=== PATIENT | male | born 1930 | race Caucasian/White ===

== ENCOUNTER 2016-10-29 13:35 | Outpatient (CLI) | payer OTHER ==
--- NOTE | 2016-10-29 15:56 | DIAGNOSTIC IMAGING REPORT ---
PROCEDURE: CT ABDOMEN/PELVIS W/O CONTRAST INDICATION: RUQ ABD PAIN TECHNIQUE: Axial CT images were obtained through the abdomen and pelvis without IV contrast. Coronal and sagittal reformations were created. COMPARISON: 03/21/2009 and renal ultrasound 07/04/2015 and 05/01/2014 FINDINGS: Mild to moderate cardiomegaly. Very small hiatal hernia. Clear lung bases. Stable heterogeneous right adrenal mass measuring about 2.5 cm. Single dependent 5 mm gallstone in the neck of the gallbladder. Atrophic renal parenchyma bilaterally. Multiple cysts bilaterally. Interval enlargement of right lower pole solid renal mass which now measures 6.6 x 5.8 x 7.0 cm, previously measuring 4 cm in greatest diameter. Prominent collateral vessels in the inferior right perinephric space. Mild perinephric inflammation. Chronically prominent right distal ureter without calcification. No visible retroperitoneal adenopathy. 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 Tortuous but normal caliber aorta. Normal pancreas, spleen, stomach, upper bowel loops, and mesentery. Small fat containing right inguinal hernia, minimally increased in size compared to 2008. Spermatic cord lipoma/fat containing left inguinal hernia, unchanged in size. Mild bilateral inguinal adenopathy, left greater than right. No significant change compared to previous. Normal prostate gland, seminal vesicles, urinary bladder. Tortuous pelvic vessels. The appendix and distal bowel loops are normal. No free pelvic fluid. Ankylosis of L1-L3 vertebral bodies and large bridging osteophytes throughout the visible thoracolumbar spine. Severe disc height loss in the lower lumbar spine. Diffuse demineralization. IMPRESSION: 1. Fat containing right inguinal hernia is slightly larger compared to the prior study. It does not significantly increase in size with Valsalva maneuver. Adjacent tissue within the hernia sac was present previously. 2. Small fat containing left inguinal hernia is unchanged. 3. Bilateral inguinal adenopathy is stable. 4. Interval increase in size of solid right renal mass, now measuring 7 cm, previously measuring 4.9 cm. Associated mild perinephric inflammation in the right retroperitoneum. 5. Calcified 5 mm gallstone in the gallbladder neck. 6. Discussed with Marcie Anderson in the Urgent Care clinic. All CT scans at this facility use dose modulation, iterative reconstruction, and/or weight-based dosing when appropriate to reduce radiation dose to as low as reasonably achievable.
[2016-11-24] MEDS ORDERED: FELODIPINE ER5 MG PO (13:51)
[2016-11-24] MEDS ORDERED: CARDURA8 MG PO (13:51)
[2016-11-24] MEDS ORDERED: INDAPAMIDE1.25 MG PO (13:52)
[2016-11-24] MEDS ORDERED: METOPROLOL TAR100 MG PO (13:53)
[2016-11-24] MEDS ORDERED: POTASSIUM CHLO10 ME2 PO (13:54)
[2016-11-24] MEDS ORDERED: COUMADIN7.5 MG PO (13:56)
== END 2016-10-29 23:00 ==
LOC: CT SRH 13:35
DX: K40.20 Bilateral inguinal hernia, without obstruction or gangrene, not specified as recurrent (principal); N28.89 Other specified disorders of kidney and ureter; R59.0 Localized enlarged lymph nodes; K80.80 Other cholelithiasis without obstruction
CPT/HCPCS: 90074; 90100; 95059

== ENCOUNTER 2016-11-27 07:43 | Day surgery (SDC) | payer OTHER ==
[~2016-11-27] VITALS: Ht 167.6 cm; Wt 81.0 kg
[~2016-11-27 07:43] MED LIST: CARDURA8 MG PO; COUMADIN7.5 MG PO; FELODIPINE ER5 MG PO; INDAPAMIDE1.25 MG PO; METOPROLOL TAR100 MG PO; POTASSIUM CHLO10 ME2 PO
[2016-11-27] MEDS ORDERED: NORCO1 TA1 PO (11:05)
--- NOTE | 2016-11-27 11:05 | Provider's Discharge Care Plan ---
Problem, Goal, Plan Problem List 1. S/P herniorrhaphy
--- NOTE | 2016-11-27 11:05 | Provider's Discharge Care Plan ---
Problem, Goal, Plan Problem List 1. S/P herniorrhaphy
--- NOTE | 2016-11-27 12:48 | OPERATIVE REPORT ---
DATE OF SURGERY: 11/27/2016 SURGEON: Bob Kaye MD PREOPERATIVE DIAGNOSIS: 1. Recurrent right inguinal hernia POSTOPERATIVE DIAGNOSIS: 1. Recurrent right inguinal hernia PROCEDURE PERFORMED: 1. Right inguinal herniorrhaphy. ANESTHESIA: Total IV general and local. INDICATIONS: The patient is an 85-year-old man with a history of right groin bulge and pain. CT confirmed a hernia and the patient had undergone a previous herniorrhaphy in the distant past. He has had multiple repairs on both sides. SURGICAL TECHNIQUE: The patient was taken to the operating room and given IV sedation. A local anesthetic block of 0.5% Marcaine with epinephrine was infiltrated. An incision was made over the right groin and carried down to skin and subcutaneous tissue with sharp and electrocautery dissection. There was quite a bit of scar tissue. The external oblique fibers were indistinct from the underlying tissues. They were opened up and dissection carried down to where there was an opening in what appeared to be the transversalis fascia down near the symphysis pubis. There was bulging preperitoneal fat coming through this defect which is about fingertip in size. The preperitoneal fat was reduced and the edges of the transversalis fascia delineated. The transversalis fascia was opened laterally part way up to the groin in order to allow an overlapping repair. A circular disk of woven polypropylene mesh was placed under the fascia near the symphysis and extending out to the epigastric vessels, which were visible at this point. A Shouldice like repair was done with 2 layers of running 2-0 polypropylene overlapping the transversalis and pulling it down to solid tissue at the lower edge which was mostly old scar from an old repair. This then incorporated the patch of polypropylene in the preperitoneal space. Following this closure, the area seemed to be pretty solid. The remaining scar tissue which was mostly the external oblique fascia and indurated post-surgical scar was reapproximated with 2 layers of running 3-0 polypropylene suture. At the conclusion, the wound was hemostatic. I did not see any good way to get an onlay patch in this area without tearing down a lot of other scarred and distorted tissue. After irrigating the subcutaneous tissue, the skin was closed with running subcuticular 4-0 Vicryl suture and Steri-Strips. In summary, this patient had a multi-recurrent hernia that was repaired with a small fingertip defect. In the event that this patient should develop a new recurrence in the future, then clearly anterior approaches are difficult and a retroperitoneal laparoscopic approach is advised despite the patient's age and desire for local anesthetic.
[2016-11-27 12:53] VITALS: BP 144/78
== END 2016-11-27 13:02 | disposition home or self-care (01) ==
LOC: SDC SRH 07:43 → SCU SRH 07:44 → OR SRH 09:45 → SDC SRH 09:45
PROVIDERS: Surgery
PROC: 0YU50JZ Supplement Right Inguinal Region with Synthetic Substitute, Open Approach (ICD-10-PCS; principal; 2016-11-27 09:45)
DX: K40.91 Unilateral inguinal hernia, without obstruction or gangrene, recurrent (principal); Z79.01 Long term (current) use of anticoagulants; I48.91 Unspecified atrial fibrillation; I10 Essential (primary) hypertension
CPT/HCPCS: 29229; 29240; 50004; 60001; 80212; 80866; 82572; 84038; 84519; 87058; 90047; 90074; 94060

== ENCOUNTER 2017-01-20 17:49 | Inpatient (IN) | payer OTHER ==
[~2017-01-20] VITALS: Ht 167.6 cm; Wt 74.8 kg
[~2017-01-20 17:49] MED LIST changes: +NORCO1 TA1 PO
--- NOTE | 2017-01-20 19:17 | DIAGNOSTIC IMAGING REPORT ---
PROCEDURE: CT SOFT TISSUE NECK W/O CONT INDICATION: Dysphagia. TECHNIQUE: Noncontrast axial images were obtained from the skull base through the upper mediastinum with sagittal and coronal reformations. In addition, angled axial oblique images were obtained (avoiding dental hardware). Intravenous contrast was not utilized (possible allergy). COMPARISON: None. FINDINGS: Soft tissues of the neck are within normal limits. There is nodes of mass or adenopathy. Airway appears normal. Parotid glands, submandibular glands, and thyroid gland are within normal limits. There are bilateral retention cyst in the maxillary sinuses There are marked degenerative changes of the cervical spine. There is moderate fluid distention of the thoracic esophagus with fluid level (partially visualized) IMPRESSION: 1. Normal soft tissues of the neck. 2. Marked degenerative change of the cervical spine. 3. Moderate fluid distention of the thoracic esophagus (partially visualized). Consider achalasia or esophageal stricture. 4. Findings discussed with Dr. Harlan Grove. All CT scans at this facility use dose modulation, iterative reconstruction, and/or weight-based dosing when appropriate to reduce radiation dose to as low as reasonably achievable.
--- NOTE | 2017-01-20 21:34 | ED NURSING NOTES ---
Clinical Report - Nurses [facility] [address] [place] [address] 01/20/2017 17:50 Patient: GAY FLORES [facility] [id number] TRIAGE Triage time 18:Jan 20 2017. Acuity: LEVEL 2. Chief Complaint: (Unable to swallow). ERIC COMA SCORE: [place] Coma Scale: 15- eyes open spontaneously (4); best verbal response- oriented x 4 (5); best motor response- obeys commands (6). --18:28 Parvin Mendoza R.N. 18:01 01/20/17. BP: 162/88. HR: 88. RR: 18. O2 saturation: 100%. Temp: 98.1 F. Pain level now 5/10. --18:28 Parvin Mendoza R.N. Weight: 75.7 kg stated. Height/Length: 66 inches Per Patient. BMI: 26.9. --18:08 Parvin Mendoza R.N. Medications Coumadin Oral 5 mg (1 1/2 tab). Doxazosin Mesylate Oral (Tablet 8 mg) 1 tablet. Felodipine Oral 5 mg, daily. Indapamide Oral (Tablet 1.25 mg) 1 tablet. Metoprolol Tartrate Oral 100 mg (2 tablets). Potassimin Oral 10mg. --18:06 Parvin Mendoza R.N. Allergies Tetanus Immune Globulin. Tetanus Toxoids. --18:06 Parvin Mendoza R.N. IV Contrast. --19:[address] History Arrived by private vehicle. Historian: patient. Accompanied by family. This started today. ( States yesterday his left jaw was hurting radiating down to his neck and his tooth was aching so he went to the dentist and the dentist found nothing wrong. The pain is gone today but now he can't swallow.). He has had a cough. No fever, weakness, difficulty breathing or skin rash. Denies muscle aches. PAST MEDICAL HX: Immunizations: up-to-date. SOCIAL HX: Former smoker, end date 1966. No alcohol use or drug use. SELF HARM ASSESSMENT: A self harm assessment was performed. The patient answered "no" to the question "Have you recently felt down, depressed, or hopeless?" and "Do you have thoughts of harming or killing yourself?". FALL RISK ASSESSMENT: Fall risk assessment completed. No fall risk identified. NUTRITIONAL RISK ASSESSMENT: The nutritional risk assessment revealed no deficiencies. FUNCTIONAL ASSESSMENT: Functional assessment: no impairments noted. LEARNING NEEDS ASSESSMENT: The learning needs assessment revealed no barriers. ABUSE ASSESSMENT: Abuse assessment: (yes) The patient was asked "Do you feel safe in your home?". SKIN INTEGRITY ASSESSMENT: Skin integrity risk assessment completed. No skin integrity risk identified. --18:28 Parvin Mendoza R.N. PROBLEMS: Hypertension. --18:06 Parvin Mendoza R.N. Kidney tumor. --19:10 Alden Johnson R.N. Atrial Fibrillation. --19:35 Alden Johnson R.N. ADDITIONAL SURGERIES: Hurnia . --18:06 Parvin Mendoza R.N. Interventions ID band on patient. --18:28 Parvin Mendoza R.N. PHYSICAL ASSESSMENT Ambulatory to room. ( Spitting unable to swallow secretions.). GENERAL / NEURO / PSYCH: Alert. Oriented X 4. Appears anxious. HEENT: Pupils equal, round and reactive to light. No facial asymmetry noted. Mucous membranes are pink. RESPIRATORY: Respirations not labored. Chest nontender. Breath sounds within normal limits. ( slight retractions states has a cough for past week.). CVS: Normal sinus rhythm noted. Capillary refill less than 2 seconds. Pulses within normal limits. GI / : ( Last BM this am and normal.). Abdomen soft and nontender. SKIN: Skin intact. Skin is warm and dry. Normal skin turgor. --18:29 Parvin Mendoza R.N. GENERAL / NEURO / PSYCH: Alert. Oriented X 4. Does not appear in pain or anxious. RESPIRATORY: Respirations not labored. The patient can speak in full sentences. CVS: Cardiac rhythm: atrial fibrillation. --21:08 Alden Johnson R.N. NURSING PROGRESS NOTES The initial plan of care for this patient includes an assessment with efforts to address patient positioning, appropriate ambient lighting and comfortable environmental temperature; impairment of the gastrointestinal system. quality assurance monitor body, pulse oximeter and NIBP monitor placed on patient. Patient gowned. Head of bed elevated 75 degrees. Reassurance given. Call light placed in reach. Side rails up x 1. Bed placed in lowest position. Brakes of bed on. --18:30 Parvin Mendoza R.N. 18:30 01/20/2017 Site #1 started via IV in the left forearm with an 18g angiocath, with aseptic technique and good blood return; one attempt. Blood drawn: rainbow set. Labeled in the presence of the patient and sent to the lab. Saline lock flushed with 10 mL saline. --18:30 Parvin Mendoza R.N. 18:31 01/20/2017 Started bag #1 1000 mL IV Fluids IV NS (Saline); at 1000 mL/hr over 1 hour(s) via site #1 via dial-a-flow. Allergies verified and confirmed 5 rights. IV patency established. IV site checked: no pain, redness, or swelling. IV flushed thoroughly pre- and post-medication administration. --18:31 Parvin Mendoza R.N. EKG time: (1817). EKG was ordered, performed by a tech and shown to the ED physician. --18:36 Claribel Lynch ER Tech1 19:15 01/20/17. BP: 169/84. HR: 109. RR: 17. O2 saturation: 97%. 18:45 01/20/17. BP: 148/80. HR: 101. RR: 19. O2 saturation: 100%. 18:30 01/20/17. BP: 155/88. HR: 100. RR: 18. O2 saturation: 99%. 18:15 01/20/17. BP: 161/84. HR: 101. RR: 16. O2 saturation: 99%. --19:23 Parvin Mendoza R.N. ( Report given to Moise VEGA). --19:23 Parvin Mendoza R.N. ( 1909: Report received from Parvin Roach RN). --19:24 Alden Johnson R.N. 19:10 01/20/17. BP: 154/88. HR: 96 (irregular). RR: 20 (regular and unlabored). O2 saturation: 100%. Pain level now: 0/10. Additional comments: AFIB on monitor. --19:25 Alden Johnson R.N. 19:31 01/20/2017 Glucagon IVP 1 mg given over 2 minute(s) via site #1. Allergies verified and confirmed 5 rights. IV patency established. IV site checked: no pain, redness, or swelling. IV flushed thoroughly pre- and post-medication administration. IVP given by RN. --19:35 Alden Johnson R.N. 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 --19:36 Alden Johnson R.N. 19:44 01/20/2017 Lopressor (Metoprolol Tartrate) IVP 5 mg given over 5 minute(s) via site #1. Allergies verified and confirmed 5 rights. IV patency established. IV site checked: no pain, redness, or swelling. IV flushed thoroughly pre- and post-medication administration. IVP given by RN. --19:45 Alden Johnson R.N. 19:53 01/20/2017 Started bag #1 1000 mL IV Fluids IV LACTATED RINGERS; at 150 mL/hr over 6.5 hour(s) via site #1 via IV pump. Allergies verified and confirmed 5 rights. IV patency established. IV site checked: no pain, redness, or swelling. IV flushed thoroughly pre- and post-medication administration. --19:53 Alden Johnson R.N. 22:06 01/20/17. BP: 126/79 taken while sitting. HR: 83 (irregular and normal rate). RR: 16 (regular and unlabored). O2 saturation: 96% on room air. Pain level now: 0/10. --22:07 Alden Johnson R.N. 19:32 01/20/2017 IV Fluids IV NS Discontinued: completed upon admission. Total amount infused: 1000 mL. IV patency established. IV site checked: no pain, redness, or swelling. IV flushed thoroughly. --22:46 Alden Johnson R.N. 22:44 01/20/2017 IV Fluids IV LACTATED RINGERS Continued: upon admission at the rate of 150 mL/hr. 600 mL remaining. IV patency established IV site checked: no pain, redness, or swelling IV flushed thoroughly. --22:46 Alden Johnson R.N. DISPOSITION / DISCHARGE Condition at departure: stable. Transported via by transport team with IV. Report was given to a nurse via a phone call. Report included patient's care, treatment, medications, reviewed medication reconcilliation, and condition (including any recent changes or anticipated changes). All questions were answered. Report was acknowledged. (Guera RN "Cat"). Patient's personal items include: shirt and pants; items were transported with the patient. --22:09 Alden Johnson R.N. 22:06 01/20/17. BP: 126/79 taken while sitting. HR: 83 (irregular and normal rate). RR: 16 (regular and unlabored). O2 saturation: 96% on room air. Pain level now: 0/10. --22:09 Alden Johnson R.N. Departure time: 22:44. --22:44 Alden Johnson R.N. 22:44:. ( patient alert and oriented on transfer). --22:47 Alden Johnson R.N. Locked/Released at 01/20/2017 22:47 by Alden Johnson R.N.
--- NOTE | 2017-01-20 21:34 | ED ORDER SUMMARY ---
..... Patient: GAY FLORES OrderSheet [facility] VisitID: [id number] [address] [place] [address] 86y, M Registration Date/Time: 01/20/2017 ORDER SHEET Weight: 75.7 kg (stated) Allergies: Tetanus Immune Globulin, Tetanus Toxoids, IV Contrast GENERAL ORDERS: CBC w Diff Urgent (18:10 01/20/2017 Morelia Bui) (Ack 18:14 Ro) (18:31 LWhalen R.N.) CMP Urgent (18:10 01/20/2017 Morelia Bui) (Ack 18:14 Ro) (18:31 LWhalen R.N.) PT with INR Urgent (18:10 01/20/2017 Morelia Bui) (Ack 18:14 Ro) (18:31 LWhalen R.N.) PTT Urgent (18:10 01/20/2017 Morelia Bui) (Ack 18:14 Ro) (18:31 LWhalen R.N.) EKG - ER Stat (18:10 01/20/2017 Morelia Bui) (18:15 Marleyner) CT Soft Tissue Neck wo Cont Urgent (18:43 01/20/2017 Morelia Bui) (Ack 18:45 FIDEoerner) (19:18 MCampbell) MEDICATION ORDERS: Glucagon IV 1 mg (NOW) (19:15 01/20/2017 Morelia Bui) (19:35 DDavis R.N.) IV FLUIDS: IV NS : initial bolus none -, then 1000 mL/hr for X1 (NOW) (18:08 01/20/2017 Morelia Bui) (18:31 LWhalen R.N.) IV Lactated Ringers : initial bolus none -, then 150 mL/hr (NOW) (19:39 01/20/2017 Morelia Bui) (19:53 DDavis R.N.) Lopressor IV 5 mg (HIGH ALERT MEDICATION, NOW) (19:40 01/20/2017 Morelia Bui) (19:45 DDavis R.N.) ORDER SHEET NOTES: [Electronically signed by Alden Johnson R.N. (22:47 01/20/2017)] [Electronically signed by Harlan Grove Dr. (20:43 01/21/2017)] [Electronically locked/signed by Alden Johnson R.N. (22:47 01/20/2017)]
--- NOTE | 2017-01-20 21:34 | ED CLINICAL REPORT ---
Clinical Report - Physicians/Mid Levels [facility] [address] [place] [address] 01/20/2017 17:50 Patient: GAY FLORES Time Seen: 18:02; initial patient contact. Arrived- By private vehicle. Historian- patient. HISTORY OF PRESENT ILLNESS Chief Complaint: FOREIGN BODY SENSATION IN THROAT. This started about 2 weeks ago and is still present and worsening. (since this AM). Pain described as mild. The patient has had a sore throat and jaw pain. Similar symptoms previously: None. Recent medical care: The patient was seen recently in a clinic. REVIEW OF SYSTEMS No fever, cough, difficulty breathing, chest pain or nausea. No diarrhea or abdominal pain. He has had vomiting. All systems otherwise negative, except as recorded above. PAST HISTORY HTN A fib. Surgeries: Hernia repair. Medications: Coumadin Oral 5 mg (1 1/2 tab). Doxazosin Mesylate Oral (Tablet 8 mg) 1 tablet. Felodipine Oral 5 mg, daily. Indapamide Oral (Tablet 1.25 mg) 1 tablet. Metoprolol Tartrate Oral 100 mg (2 tablets). Potassimin Oral 10mg. Allergies: IV Contrast. Tetanus Immune Globulin. Tetanus Toxoids. SOCIAL HISTORY Former smoker. No alcohol use or drug use. ADDITIONAL NOTES The nursing notes have been reviewed. PHYSICAL EXAM Vital Signs: 01/20/2017 18:01 BP: 162/88. HR: 88. RR: 18. O2 saturation: 100%. Temp: 98.1 F. Have been reviewed. Hypertensive. Heart rate normal. Respiratory rate normal. Temperature normal. Oxygen saturation normal. Appearance: Alert. No acute distress. Head: Normal external inspection. ENT: Pharynx normal. No trismus present. Uvula midline. Neck: Normal inspection. Trachea midline. No adenopathy. Thyroid normal. Neck supple. CVS: Abnormal rhythm, which is irregularly irregular. Rate normal. No cardiac murmur. Respiratory: No respiratory distress. Breath sounds normal. Abdomen: Soft and nontender. No organomegaly. Skin: Normal skin color. Normal skin turgor. Extremities: No lower extremity edema. Neuro: Oriented X 3. LABS, X-RAYS, AND EKG EKG: EKG time: (1817). Atrial fibrillation (narrow-complex) (ventricular rate 91). Normal QRS complex. Normal axis. Normal ST and T waves and QT. Prior EKG unavailable. The study has been interpreted contemporaneously by me. The study has been independently viewed by me. The EKG appears to be a good tracing. I agree with and confirm the computer reading of the EKG. Interpretation time: 1817. CT Neck - Soft Tissue: (1. Normal soft tissues of the neck. 2. Marked degenerative change of the cervical spine. 3. Moderate fluid distention of the thoracic esophagus (partially visualized). Consider achalasia or esophageal stricture.). Neck CT (soft tissue) performed without contrast. The study was independently viewed by me, interpreted by the radiologist and discussed with the radiologist. Prior studies were not available for comparison. Interpretation time: 19:27. Laboratory Tests: CBC w Diff: (KELI: 01/20/2017 18:22) ( [facility] 01/20/2017 18:51) Final results Test Result Flag Units (Reference) WHITE BLOOD COUNT 6.6 K/uL (4.5-11.5) RED BLOOD COUNT 5.00 M/uL (4.50-5.90) HEMOGLOBIN 15.6 gm/dL (13.5-17.5) HEMATOCRIT 46.5 % (41.0-53.0) MEAN CELL VOLUME 93 fL (80-100) MEAN CORPUSCULAR HGB 31 pg (26-34) MEAN CORPUSCULAR HGB CONC 34 g/dL (31-37) RED CELL DISTRIBUTION WIDTH 12.6 % (11.6-14.8) PLATELET COUNT 145 L K/uL (150-400) NEUTROPHIL % 74.0 % (50-75) LYMPH % 14.8 L % (25-40) MONO % 9.4 % (3-14) EOSINOPHIL % 1.5 % (0-4) BASOPHIL % 0.3 % (0-2) PT with INR: (KELI: 01/20/2017 18:22) ( [facility] 01/20[facility] 19:05) Final results Test Result Flag Units (Reference) INR 1.6 H (0.8-1.2) Low Intensity Therapy: INR 1.5-2.0 PT range 18.5-23.1Mod.Intensity Therapy: INR 2.0-3.0 PT range 23.1-31.5High Intensity Therapy: INR 2.5-3.5 PT range 27.4-35.5High Intensity Therapy 2: INR 3.0-4.0 PT range 31.5-39.3 APTT 31 SECONDS (24-34) CMP: (KELI: 01/20/2017 18:22) ( [facility] 01/20/2017 19:10) Final results Test Result Flag Units (Reference) GLUCOSE 122 H mg/dL (70-110) BUN 23 H mg/dL (7-18) CREATININE 2.0 H mg/dL (0.6-1.3) Estimated GFR 33.68 mL/min Estimated GFR- 40.82 mL/min Note: Persistent reduction over 3 months in eGFR<60 mL/min/1.73 m2 defines CKD. Patients with eGFR values>=60 mL/min/1.73 m2 may also have CKD if evidence ofpersistent proteinuria. Additional information may be foundat www.kidney.org. SODIUM 142 mmol/L (136-145) POTASSIUM 3.5 mmol/L (3.5-5.1) CHLORIDE 104 mmol/L (98-107) CARBON DIOXIDE 24 mmol/L (21-32) CALCIUM 9.3 mg/dL (8.5-10.1) TOTAL PROTEIN 7.7 g/dL (6.4-8.2) ALBUMIN 4.0 g/dL (3.3-5.0) BILIRUBIN, TOTAL 1.9 H mg/dL (0.0-1.0) ALKALINE PHOSPHATASE 109 U/L (46-116) AST (SGOT) 30 U/L (15-37) ALT (SGPT) 29 U/L (12-78) . PROGRESS AND PROCEDURES Discussed case with hospitalist, (call returned 21:26 Dr. Begum. Will accept pt.). Consult obtained from surgery. 21:[address] Bull. Will consult and take for EGD tomorrow. Requested holding Coumadin. Disposition: Admitted to Acute Care. Condition: good. Admit decision based on need for observation and surgery. CLINICAL IMPRESSION Pharyngoesophageal dysphagia. Chronic atrial fibrillation with controlled rate. Oral anticoagulation therapy with subtherapeutic INR. INSTRUCTIONS Follow-up: Blood pressure screening was not performed during this visit because the patient has an active diagnosis of hypertension. (Electronically signed by Harlan Grove Dr. 01/21/2017 20:43) Addenda for [facility] VisitID: [id number] Date: 01/20/2017 01/20/2017 22:37 Dr Begum arrived to admit patient and found his attending to be Dr Ott. Dr Ott returned our page and will admit the patient . (Electronically signed by Carlos Flores MD - 01/20/2017 22:37)
--- NOTE | 2017-01-20 21:34 | ED ORDER SUMMARY ---
..... Patient: GAY FLORES OrderSheet [facility] VisitID: [id number] [address] [place] [address] 86y, M Registration Date/Time: 01/20/2017 ORDER SHEET Weight: 75.7 kg (stated) Allergies: Tetanus Immune Globulin, Tetanus Toxoids, IV Contrast GENERAL ORDERS: CBC w Diff Urgent (18:10 01/20/2017 Morelia Bui) (Ack 18:14 Ro) (18:31 LWhalen R.N.) CMP Urgent (18:10 01/20/2017 Morelia Bui) (Ack 18:14 Ro) (18:31 LWhalen R.N.) PT with INR Urgent (18:10 01/20/2017 Morelia Bui) (Ack 18:14 Ro) (18:31 LWhalen R.N.) PTT Urgent (18:10 01/20/2017 Morelia Bui) (Ack 18:14 Ro) (18:31 LWhalen R.N.) EKG - ER Stat (18:10 01/20/2017 Morelia Bui) (18:15 Marleyner) CT Soft Tissue Neck wo Cont Urgent (18:43 01/20/2017 Morelia Bui) (Ack 18:45 FIDEoerner) (19:18 MCampbell) MEDICATION ORDERS: Glucagon IV 1 mg (NOW) (19:15 01/20/2017 Morelia Bui) (19:35 DDavis R.N.) IV FLUIDS: IV NS : initial bolus none -, then 1000 mL/hr for X1 (NOW) (18:08 01/20/2017 Morelia Bui) (18:31 LWhalen R.N.) IV Lactated Ringers : initial bolus none -, then 150 mL/hr (NOW) (19:39 01/20/2017 Morelia Bui) (19:53 DDavis R.N.) Lopressor IV 5 mg (HIGH ALERT MEDICATION, NOW) (19:40 01/20/2017 Morelia Bui) (19:45 DDavis R.N.) ORDER SHEET NOTES: [Electronically signed by Alden Johnson R.N. (22:47 01/20/2017)] [Electronically signed by Harlan Grove Dr. (20:43 01/21/2017)] [Electronically locked/signed by Alden Johnson R.N. (22:47 01/20/2017)]
--- NOTE | 2017-01-20 21:34 | ED CLINICAL REPORT ---
Clinical Report - Physicians/Mid Levels [facility] [address] [place] [address] 01/20/2017 17:50 Patient: GAY FLORES Time Seen: 18:02; initial patient contact. Arrived- By private vehicle. Historian- patient. HISTORY OF PRESENT ILLNESS Chief Complaint: FOREIGN BODY SENSATION IN THROAT. This started about 2 weeks ago and is still present and worsening. (since this AM). Pain described as mild. The patient has had a sore throat and jaw pain. Similar symptoms previously: None. Recent medical care: The patient was seen recently in a clinic. REVIEW OF SYSTEMS No fever, cough, difficulty breathing, chest pain or nausea. No diarrhea or abdominal pain. He has had vomiting. All systems otherwise negative, except as recorded above. PAST HISTORY HTN A fib. Surgeries: Hernia repair. Medications: Coumadin Oral 5 mg (1 1/2 tab). Doxazosin Mesylate Oral (Tablet 8 mg) 1 tablet. Felodipine Oral 5 mg, daily. Indapamide Oral (Tablet 1.25 mg) 1 tablet. Metoprolol Tartrate Oral 100 mg (2 tablets). Potassimin Oral 10mg. Allergies: IV Contrast. Tetanus Immune Globulin. Tetanus Toxoids. SOCIAL HISTORY Former smoker. No alcohol use or drug use. ADDITIONAL NOTES The nursing notes have been reviewed. PHYSICAL EXAM Vital Signs: 01/20/2017 18:01 BP: 162/88. HR: 88. RR: 18. O2 saturation: 100%. Temp: 98.1 F. Have been reviewed. Hypertensive. Heart rate normal. Respiratory rate normal. Temperature normal. Oxygen saturation normal. Appearance: Alert. No acute distress. Head: Normal external inspection. ENT: Pharynx normal. No trismus present. Uvula midline. Neck: Normal inspection. Trachea midline. No adenopathy. Thyroid normal. Neck supple. CVS: Abnormal rhythm, which is irregularly irregular. Rate normal. No cardiac murmur. Respiratory: No respiratory distress. Breath sounds normal. Abdomen: Soft and nontender. No organomegaly. Skin: Normal skin color. Normal skin turgor. Extremities: No lower extremity edema. Neuro: Oriented X 3. LABS, X-RAYS, AND EKG EKG: EKG time: (1817). Atrial fibrillation (narrow-complex) (ventricular rate 91). Normal QRS complex. Normal axis. Normal ST and T waves and QT. Prior EKG unavailable. The study has been interpreted contemporaneously by me. The study has been independently viewed by me. The EKG appears to be a good tracing. I agree with and confirm the computer reading of the EKG. Interpretation time: 1817. CT Neck - Soft Tissue: (1. Normal soft tissues of the neck. 2. Marked degenerative change of the cervical spine. 3. Moderate fluid distention of the thoracic esophagus (partially visualized). Consider achalasia or esophageal stricture.). Neck CT (soft tissue) performed without contrast. The study was independently viewed by me, interpreted by the radiologist and discussed with the radiologist. Prior studies were not available for comparison. Interpretation time: 19:27. Laboratory Tests: CBC w Diff: (KELI: 01/20/2017 18:22) ( [facility] 01/20/2017 18:51) Final results Test Result Flag Units (Reference) WHITE BLOOD COUNT 6.6 K/uL (4.5-11.5) RED BLOOD COUNT 5.00 M/uL (4.50-5.90) HEMOGLOBIN 15.6 gm/dL (13.5-17.5) HEMATOCRIT 46.5 % (41.0-53.0) MEAN CELL VOLUME 93 fL (80-100) MEAN CORPUSCULAR HGB 31 pg (26-34) MEAN CORPUSCULAR HGB CONC 34 g/dL (31-37) RED CELL DISTRIBUTION WIDTH 12.6 % (11.6-14.8) PLATELET COUNT 145 L K/uL (150-400) NEUTROPHIL % 74.0 % (50-75) LYMPH % 14.8 L % (25-40) MONO % 9.4 % (3-14) EOSINOPHIL % 1.5 % (0-4) BASOPHIL % 0.3 % (0-2) PT with INR: (KELI: 01/20/2017 18:22) ( [facility] 01/20/2017 19:05) Final results Test Result Flag Units (Reference) INR 1.6 H (0.8-1.2) Low Intensity Therapy: INR 1.5-2.0 PT range 18.5-23.1Mod.Intensity Therapy: INR 2.0-3.0 PT range 23.1-31.5High Intensity Therapy: INR 2.5-3.5 PT range 27.4-35.5High Intensity Therapy 2: INR 3.0-4.0 PT range 31.5-39.3 APTT 31 SECONDS (24-34) CMP: (KELI: 01/20/2017 18:22) ( [facility] 01/20/2017 19:10) Final results Test Result Flag Units (Reference) GLUCOSE 122 H mg/dL (70-110) BUN 23 H mg/dL (7-18) CREATININE 2.0 H mg/dL (0.6-1.3) Estimated GFR 33.68 mL/min Estimated GFR- 40.82 mL/min Note: Persistent reduction over 3 months in eGFR<60 mL/min/1.73 m2 defines CKD. Patients with eGFR values>=60 mL/min/1.73 m2 may also have CKD if evidence ofpersistent proteinuria. Additional information may be foundat [email or web address].org. SODIUM 142 mmol/L (136-145) POTASSIUM 3.5 mmol/L (3.5-5.1) CHLORIDE 104 mmol/L (98-107) CARBON DIOXIDE 24 mmol/L (21-32) CALCIUM 9.3 mg/dL (8.5-10.1) TOTAL PROTEIN 7.7 g/dL (6.4-8.2) ALBUMIN 4.0 g/dL (3.3-5.0) BILIRUBIN, TOTAL 1.9 H mg/dL (0.0-1.0) ALKALINE PHOSPHATASE 109 U/L (46-116) AST (SGOT) 30 U/L (15-37) ALT (SGPT) 29 U/L (12-78) . PROGRESS AND PROCEDURES Discussed case with hospitalist, (call returned 21:26 Dr. Begum. Will accept pt.). Consult obtained from surgery. 21:[address] Bull. Will consult and take for EGD tomorrow. Requested holding Coumadin. Disposition: Admitted to Acute Care. Condition: good. Admit decision based on need for observation and surgery. CLINICAL IMPRESSION Pharyngoesophageal dysphagia. Chronic atrial fibrillation with controlled rate. Oral anticoagulation therapy with subtherapeutic INR. INSTRUCTIONS Follow-up: Blood pressure screening was not performed during this visit because the patient has an active diagnosis of hypertension. (Electronically signed by Harlan Grove Dr. 01/21/2017 20:43) Addenda for [facility] VisitID: [id number] Date: 01/20/2017 01/20/2017 22:37 Dr Begum arrived to admit patient and found his attending to be Dr Ott. Dr Ott returned our page and will admit the patient . (Electronically signed by Carlos Flores MD - 01/20/2017 22:37)
[2017-01-20] MEDS ORDERED: COUMADIN5 MG PO (22:14)
[2017-01-20] MEDS ORDERED: COUMADIN7.5 MG PO (22:15)
--- NOTE | 2017-01-20 22:55 | NUR ---
PAULINE JUST ARRIVED TO UNIT. LUNG SOUNDS DIMISHED THROUGHOUT. BOWEL TONES PRESENT ALL QUARDRANTS. NO C/O N/V (EXCEPT THE OCCASIONAL SPITTING CLEAR THICK MOUCUS LIKE UP). BIOPSYCHOLOGIST EQUAL. CAN STAND AND WALK INDEPENDENTLY. NO C/O CHEST PAIN OR PALPITATIONS. NO C/O SOB. SMILES. NORMAL.
[2017-01-20 23:07] VITALS: BP 157/95
[2017-01-21] VITALS (12 sets, daily range): BP systolic 145–169; BP diastolic 75–96
--- NOTE | 2017-01-21 01:31 | NUR ---
PT. IS RESTING IN BED AT THIS TIME, WATCHING TELEVISION. PT IS ORIENTED AND COOPERATIVE WITH CARE. DR. LISA IN TO ASSESS PATIENT. PT. STATES THAT IT HAS BEEN FEELING TIGHT WHEN HE SWALLOWS, BUT DENIES SOB/DIFFICULTY BREATHING. HAS OCCAS. COUGH. PT. 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 HAS GLASSES WITH HIM. PT. IS INDEPENDENT AND STEADY ON HIS FEET. CALL LIGHT WITHIN REACH. TM.
--- NOTE | 2017-01-21 04:11 | HISTORY AND PHYSICAL ---
ADMITTED: 01/20/2017 CHIEF COMPLAINT: 1. Difficulty swallowing HISTORY OF PRESENT ILLNESS: The patient is an 86-year-old white male who has had problems developing over the last month or so of difficulty swallowing. He has gradually had this worsen. He has been trying to wash his food down using liquids and some hot water before and after he eats. This has worked up until the last day or so. Over the last day or so, he has had markedly increased phlegm and a very difficult time with swallowing. Today, he was really not able to get any food down at all. He had been to a dentist earlier in the day for problems of some left jaw discomfort. He did not show any distinct dental abnormalities. He did have a slight amount of anesthetic given and thought this might be triggering his swallowing difficulty today, but when he was seen in the [facility] and the emergency department, he showed evidence of quite significant dilation of the esophagus due to retained food and fluid. He had a CT scan done of the thorax and paraesophageal soft tissue and this showed no evidence of esophageal mass, just distal narrowing. He has not had a great deal of pain. He has had no problems with throwing up of blood nor has he had problems with blood in his stool. He has had some weight loss due to difficulties with eating. MEDICAL/SURGICAL HISTORY: Past medical history: Remarkable for longstanding atrial fibrillation and hypertension. He also has had problems with mild chronic obstructive pulmonary disease and problems with khie-go-vwmirfth chronic kidney disease. 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 This pretty much resolve after he had his prostate gland removed. Additionally, he has had a right kidney mass which has been present for the last 10 years or so. He has not wanted to do anything with this and has opted not to have it biopsied or removed. Over the last 2 years or so, it seems to be enlarging some. He was referred to one of the urologists for a visit in November but I do not think he actually ended up scheduling the appointment. Other recent problems include right inguinal hernia, recurrent type. Past surgical history is remarkable for remote tonsillectomy. He has also had mastoid surgery, several inguinal hernia repairs with most recent repair done in early November with Dr. Kaye for recurrent right inguinal hernia. He also has had a prostatectomy done. He has had a colonoscopy done in about 2006 and this showed an adenomatous polyp in transverse colon. He has not had a colonoscopy done since. MEDICATIONS: 1. Uloric 40 mg daily to control gout. 2. Colchicine 0.6 mg 2 tabs initially and then one repeated in 3 minutes if needed for flare of gout. 3. Warfarin 7.5 mg on Thursday and 5 mg all other days. 4. Felodipine 5 mg strength 1 every evening for blood pressure control. 5. Metoprolol tartrate 100 mg strength 2 tablets in the morning and 1/2 tablet in the evening to control blood pressure. 6. Indapamide 1.25 mg every morning for blood pressure control. 7. Potassium 10 mEq daily. 8. The patient has also been taking Doxazosin 8 mg 1 at bedtime to control blood pressure and to improve urine flow. ALLERGIES: 1. THE PATIENT IS SENSITIVE TO FLU VACCINES WHICH CAUSE QUITE BIT OF NAUSEA. 2. SENSITIVE TO TETANUS TOXOID. 3. SULFA DRUGS. SOCIAL HISTORY: Indicates the patient is and lives with his . 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 It does not drink alcohol. He does drink quite a bit of coffee. FAMILY HISTORY: Father around age 86 of stroke./ Mother age 94 of "old age'. REVIEW OF SYSTEMS: HEENT has been okay. Respiratory has been okay with no pronounced shortness of breath. He has had coughing due to phlegm in the esophagus. Cardiovascular is negative for chest pain. He does have stable atrial fibrillation. He does have some mild fluid retention which seems to mostly be due to venous insufficiency. Gastrointestinal is remarkable for some heartburn at times, but not severe. He has developed difficulty swallowing as noted above. He has had no blood in his stool or diarrhea. Genitourinary is remarkable for somewhat decreased urine flow at times. He has had a prostatectomy but he has had no obvious blood in his urine. Musculoskeletal is remarkable for quite significant left knee pain, limiting ambulation quite significantly. Neurologic is okay. Psychiatric is okay. Skin is okay. PHYSICAL EXAMINATION: GENERAL: Reveals the patient to be an elderly white male who is in no acute distress. He is alert and appropriate, with responses. VITAL SIGNS: Temperature is 98. Pulse is in the 70s and irregularly irregular. Blood pressure is 150/95. Oxygen saturations 98%. HEENT: Head is normal. Ear canals and tympanic membranes are normal. Eyes show pupils equal, round, and reactive. Normal extraocular movements. Nose and throat are clear. NECK: Supple without significant adenopathy. CHEST: Reveals somewhat decreased breath sounds with slightly prolonged respiratory phase with I:E ratio of 1:1. HEART: Reveals an irregularly irregular rhythm. There is a grade 1-2/6 systolic murmur at the left sternal border. ABDOMEN: Slightly distended. There is no organomegaly or mass. Bowel tones are normal. GENITALIA: Show normal circumcised male. Testes are descended bilaterally. There is a healing hernia repair scar in the right inguinal hernia. There is a slight bulge with Valsalva maneuver on the left, but no distinct hernia. RECTAL: Reveals prostate to be somewhat irregular with remaining prostate tissue quite minimal following a TUR done a number of years ago. There are no rectal masses. Stool guaiac is negative. EXTREMITIES: Show +1 dorsalis pedis pulses. There is +1 edema of the ankle and foot. NEUROLOGIC: Reveals the patient to be alert and oriented x3. Cranial nerves are normal. Motor and sensory exams are normal. SKIN: Okay. LAB/IMAGING: Laboratory studies show sodium to be 142, potassium 3.5, chloride is 104, CO2 24, BUN 23, creatinine 2.0. Glucose 122. Total bilirubin is 1.9. SGOT is 30, SGPT is 29. Alkaline phosphatase is 109. White blood cell count is 6800. Hemoglobin is 15.5, hematocrit is 46.5. PT/INR is 1.6. Imaging studies include a soft tissue thorax CT which shows food and fluid in the esophagus with no evidence of anything to suggest a tumor in the lower esophagus. EKG shows atrial fibrillation with a rate of around 80- 90with some PVCs. General QRS complexes stable with no acute ST-segment elevations or depressions. IMPRESSION: 1. The patient is presenting with esophageal stricture, most likely secondary to gastroesophageal reflux and stomach acid irritation, though he has not been extremely symptomatic from this over the years. 2. Other problems include chronic atrial fibrillation. 3. Hypertension which is stable. 4. Right kidney mass with question of renal cell carcinoma. The patient has preferred no treatment for this so far. 5. He also has underlying chronic kidney disease. 6. Degenerative arthritis, particularly affecting the left knee. 7. He has had a history of gout as well. PLAN: The patient is admitted. Dr. Kaye has been advised of the patient's admit and will consult in the morning and consider proceeding with the EGD. The patient will remain n.p.o. He will be given metoprolol tartrate at 2.5 mg every 4 hours to control heart rate and blood pressure. He will be maintained on low-flow IV fluid. The patient is a FULL CODE for now.
--- NOTE | 2017-01-21 11:41 | NUR ---
PATIENT JUST LEFT FOR OR TO HAVE EGD DONE - CONSENT SIGNED AND JEWELRY SECURED.
--- NOTE | 2017-01-21 11:49 | NUR ---
1150--pt tx to po,alert, oriented, had just gone to bathroom and voided as I arrived, confirms procedure, allergies noted, glasses on. will be back to hosp around 3- we have phone #
--- NOTE | 2017-01-21 12:44 | NUR ---
to pacu, report to gs
--- NOTE | 2017-01-21 12:48 | NUR ---
PT RECEIVED TO PACUSEDATED AND RESTING ON HIS LEFT SIDE. COUGHING ON AWAKENING AND PRODUCING SPUTUM. VSS.
--- NOTE | 2017-01-21 13:15 | NUR ---
PT AWAKE AND COMFORTABLE. VSS.
--- NOTE | 2017-01-21 13:26 | NUR ---
pt just returned from OR, vss stable and patient awake and alert, denies pain or SOB. lungs CTAB - able to start on clears per report. WCTM
--- NOTE | 2017-01-21 13:39 | OPERATIVE REPORT ---
DATE OF SURGERY: 01/21/2017 SURGEON: Bob Kaye MD PREOPERATIVE DIAGNOSIS: 1. Esophageal obstruction POSTOPERATIVE DIAGNOSES: 1. Esophageal obstruction PROCEDURE PERFORMED: 1. Esophagogastroduodenoscopy with biopsy and dilation ANESTHESIA: Total IV general. INDICATIONS: The patient is an 86-year-old man who presents with dysphagia and complete esophageal obstruction. SURGICAL TECHNIQUE: The patient was taken to the endoscopy suite, where total IV general was administered and the patient was placed in the left lateral decubitus position. A well-lubricated endoscope was inserted down the esophagus. There was some particulate matter and some saliva pooled in the lower esophagus, and there was an area that looked like either a very inflamed stricture or perhaps a neoplasm in the lower third of the esophagus. This area was sampled with shallow bites of the biopsy forceps. Note, this patient was mildly coagulopathic due to anticoagulation with an INR of 1.6 yesterday. There was no ongoing bleeding. Following biopsies, the stomach was entered with the endoscope and there was a large hiatal hernia on retroflexed view. On withdrawal , the channel appeared to close down fairly readily though it did admit the endoscope. For this reason, it was decided to go ahead and dilate him to a limited degree with a 12 mm balloon and not go any further due to risk of neoplastic rupture or ongoing bleeding. It was first inflated to 10 mm without much resistance and taken up to 12 mm without difficulty and left in place for about a minute or two. The balloon was withdrawn and the endoscope was withdrawn and the patient left in good condition.
--- NOTE | 2017-01-21 13:46 | NUR ---
NUTRITION ASSESSMENT: S: Pt admitted with dysphagia, A-fib, PMH includes: difficulty swallowing, A fib, mild COPD, mild to moderate kidney disease, enlarged prostate gland, right kideny mass (present for last 10 years or so). Pt s/p EGD today 2/2 dysphagia dx, see below. O: Diet Rx: NPO NKFA Wts: 73.4 kg Ht: 66" IBW: 60-75 kg BMI: 26.3 Est Kcals: ~2696-8701 kcals per day Est Pro: ~70-80 g per day Est Fluids: ~2.0 L per day Meds Incl: 01/20) glucose 122, BUN 23, creat 2.0, Na+ 142, K+ 3.5, Ca+ 9.3, total pro 7.7, alk phos 109, ast 30, alt 29 HCT 46.5, HGB 15.0, MCV 93, MCH 31 Skin: Fam Score 21; hernia groin area, warm/pink skin, no open areas noted, waffle overlay in place A: Rev'd operative report (EGD). Rec consider swallow evaluation to determine safe diet for pt, if pt to remain NPO rec consider nutrition support (EN). Pts BMI wnl; good to see. No changes in weights desired. RD to follow closely. P: 1. Rec swallow evaluation please.
--- NOTE | 2017-01-21 19:38 | NUR ---
A&OX3, LS CTA W/ DIMINISHED BASES, HR IS IRREG AND BT ACTIVE. TELE IS AFIB IN THE 90'S. NO C/O PAIN OR NAUSEA. DIET MOVED TO CLEAR LIQUID, PT TOLERATING WELL. DR FAUST TO BE IN TOMORROW AND DISCUSS DETAILS OF PROCEDURE W/ . AMBULATES IND. TEMPARATURE UP TO 100.3, 2 BLANKETS TAKEN OFF PTS BED HE HAD 5 ON IT. RESTING W/ CALL LIGHT IN REACH.
--- NOTE | 2017-01-21 19:48 | CONSULTATION REPORT ---
DATE OF CONSULTATION: 01/21/2017 REFERRING PHYSICIAN: Dr. Ott HISTORY OF PRESENT ILLNESS: The patient is an 86-year-old man admitted to the hospital for problems swallowing. He had noted some problem with solid food dysphagia going back a number of weeks. He had some mild weight loss, perhaps 5 to 10 pounds. He noted yesterday that he could not get food down at all and for that reason came to the hospital. Overnight, he reports that he spit up some of his phlegm, but was not uncomfortable. He underwent a CT scan demonstrating no masses or other obstructive lesions, other than distal narrowing of the esophagus. MEDICAL/SURGICAL HISTORY: Past medical history: Atrial fibrillation, hypertension, COPD, mild chronic renal failure, obstructive uropathy with prostatectomy, chronic right kidney mass, being followed. Past surgeries: Include right inguinal herniorrhaphy with repair of a recurrence done in November by myself. He has also had tonsillectomy, mastoid surgery, colonoscopy with polypectomy in 2006. MEDICATIONS: 1. Uloric 40 mg daily. 2. Colchicine 0.6 mg 2 tablets and repeat as needed for flares of gout. 3. Warfarin 7.5 on Thursday, 5 mg other days. 4. Felodipine 5 mg at bedtime. 5. Metoprolol 200 mg in a.m. and 50 mg in p.m. 6. Indapamide 1.25 mg daily. 7. KCl 10 mEq daily. 8. Doxazosin 8 mg at bedtime. ALLERGIES: 1. FLU VACCINE CAUSED NAUSEA. 2. HE IS SENSITIVE TO TETANUS TOXOID. 3. SULFA. SOCIAL HISTORY: The patient is , lives with . He is retired. He is formerly a smoker, but has quit. He does not take alcohol. He drinks coffee. FAMILY HISTORY: None obtained at this time, no noted history of esophageal cancer. REVIEW OF SYSTEMS: A multipoint review of systems was obtained on 01/20/[address] Ott. PHYSICAL EXAMINATION: GENERAL: He is an elderly gentleman in no acute distress. He is alert, cooperative and provides appropriate answers. HEENT: His ears and nose did not demonstrate any external lesions. His eyes are equal. There is no icterus. NECK: Without palpable masses. There is no supraclavicular adenopathy. CHEST: Clear bilaterally. HEART: Irregularly irregular. ABDOMEN: Nondistended. There is no palpable hepatosplenomegaly or tenderness. There is a fresh right inguinal hernia scar, which appears to be well-healed without signs of infection. EXTREMITIES: He appears to move without restriction. IMPRESSION: 1. Esophageal obstruction, possibly stricture versus neoplasm. 2. Atrial fibrillation, on chronic anticoagulation with INR of 1.6. PLAN: I have recommended patient to undergo an esophagogastroduodenoscopy as requested. I reported to him that he has minimal anticoagulation at the moment and we have held his Coumadin. If we need to do biopsies or a minimal dilation we could still do this under the circumstances. I reported to him what the possibilities are and that if we really strongly suspect neoplasm, we may not choose to dilate, but if it looks amenable to a minimal dilation we may choose to take him up to a lower level, perhaps 12 mm, which may be only a short solution. In any case, a histopathology will be useful to exclude neoplasm, which is definitely in the differential diagnosis despite the benign looking CT scan. The patient appeared to understand the risk of perforation, stimulating bleeding and others as complications, would like to proceed with esophagogastroduodenoscopy as described to him.
--- NOTE | 2017-01-21 20:44 | ED MED RECONCILIATION SUMMARY ---
Patient: GAY FLORES Medication Reconciliation Report [facility] VisitID: [id number] [address] [place] [address] 86y, M Registration Date/Time: 01/20/2017 Weight: 75.7 kg Height/Length: 66 in. BMI: 26.9 ALLERGIES: IV Contrast, Tetanus Immune Globulin, Tetanus Toxoids The patient's Home Medications are listed below: THE FOLLOWING MEDICATIONS NEED TO BE RECONCILED: Coumadin Oral 5 mg, 1 1/2 tab Doxazosin Mesylate Oral (8 mg) 1 tablet Felodipine Oral 5 mg, daily Indapamide Oral (1.25 mg) 1 tablet Metoprolol Tartrate Oral 100 mg, 2 tablets Potassimin Oral 10mg The source(s) of the original Home Medication information: Not obtained. The following Medications were given to the patient in the Emergency Department: IV NS IV Fluids bolus 0, then 1000 mL/hr, administered: 01/20/2017 6:31:00 PM Glucagon [IVP] IVP 1 mg, administered: 01/20/2017 7:31:00 PM Lopressor [IVP] IVP 5 mg, administered: 01/20/2017 7:44:00 PM IV LACTATED RINGERS IV Fluids bolus 0, then 150 mL/hr, administered: 01/20/2017 7:53:00 PM The following Medications were prescribed to the patient: None.
--- NOTE | 2017-01-21 20:44 | ED DISCHARGE INSTRUCTIONS ---
Patient: GAY FLORES General Instructions [facility] VisitID: [id number] [address] [place] [address] 86y, M Registration Date/Time: 01/20/2017 Pharyngoesophageal dysphagia. Chronic atrial fibrillation with controlled rate. Oral anticoagulation therapy with subtherapeutic INR. INSTRUCTIONS Follow-up: Blood pressure screening was not performed during this visit because the patient has an active diagnosis of hypertension. (Electronically signed by Harlan [address] Dr. 01/21/2017 20:43)
--- NOTE | 2017-01-21 20:44 | ED MAR SUMMARY ---
..... Medication Administration Record [facility] [address] [place] [address] Patient: GAY FLORES Visit ID: [id number] 86y, M Weight: 75.7 kg Height/Length: 66 in BMI: 26.9 ALLERGIES: Tetanus Immune Globulin, Tetanus Toxoids, IV Contrast Start 18:31 01/20/2017 Parvin Mendoza R.N., Stop 19:32 01/20/2017 Alden Johnson R.N. Medication Administered: IV NS (SALINE), Dose: IV Fluids over 1 hour(s), Rate: 1000 mL/hr, Dispensed: 1000 mL bag, Site: #1 left forearm. Medication Ordered: IV NS : initial bolus none -, then 1000 mL/hr for X1 (NOW). Given 19:31 01/20/2017 Alden Johnson R.N. Medication Administered: GLUCAGON [IVP], Dose: 1 mg IVP over 2 minute(s), Site: #1 left forearm. Medication Ordered: Glucagon IV 1 mg (NOW). Given 19:44 01/20/2017 Alden Johnson R.N. Medication Administered: LOPRESSOR [IVP] (METOPROLOL TARTRATE), Dose: 5 mg IVP over 5 minute(s), Site: #1 left forearm. Medication Ordered: Lopressor IV 5 mg (HIGH ALERT MEDICATION, NOW). Start 19:53 01/20/2017 Alden Johnson R.N., Continued Upon Admission 22:44 01/20/2017 Alden Johnson R.N. Medication Administered: IV LACTATED RINGERS, Dose: IV Fluids over 6.5 hour(s), Rate: 150 mL/hr, Dispensed: 1000 mL bag, Site: #1 left forearm. Medication Ordered: IV Lactated Ringers : initial bolus none -, then 150 mL/hr (NOW).
--- NOTE | 2017-01-21 20:44 | ED MAR SUMMARY ---
..... Medication Administration Record [facility] [address] [place] [address] Patient: GAY FLORES Visit ID: [id number] 86y, M Weight: 75.7 kg Height/Length: 66 in BMI: 26.9 ALLERGIES: Tetanus Immune Globulin, Tetanus Toxoids, IV Contrast Start 18:31 01/20/2017 Parvin Mendoza R.N., Stop 19:32 01/20/2017 Alden Johnson R.N. Medication Administered: IV NS (SALINE), Dose: IV Fluids over 1 hour(s), Rate: 1000 mL/hr, Dispensed: 1000 mL bag, Site: #1 left forearm. Medication Ordered: IV NS : initial bolus none -, then 1000 mL/hr for X1 (NOW). Given 19:31 01/20/2017 Alden Johnson R.N. Medication Administered: GLUCAGON [IVP], Dose: 1 mg IVP over 2 minute(s), Site: #1 left forearm. Medication Ordered: Glucagon IV 1 mg (NOW). Given 19:44 01/20/2017 Alden Johnson R.N. Medication Administered: LOPRESSOR [IVP] (METOPROLOL TARTRATE), Dose: 5 mg IVP over 5 minute(s), Site: #1 left forearm. Medication Ordered: Lopressor IV 5 mg (HIGH ALERT MEDICATION, NOW). Start 19:53 01/20/2017 Alden Johnson R.N., Continued Upon Admission 22:44 01/20/2017 Alden Johnson R.N. Medication Administered: IV LACTATED RINGERS, Dose: IV Fluids over 6.5 hour(s), Rate: 150 mL/hr, Dispensed: 1000 mL bag, Site: #1 left forearm. Medication Ordered: IV Lactated Ringers : initial bolus none -, then 150 mL/hr (NOW).
--- NOTE | 2017-01-21 20:44 | ED DISCHARGE INSTRUCTIONS ---
Patient: GAY FLORES General Instructions [facility] VisitID: [id number] [address] [place] [address] 86y, M Registration Date/Time: 01/20/2017 Pharyngoesophageal dysphagia. Chronic atrial fibrillation with controlled rate. Oral anticoagulation therapy with subtherapeutic INR. INSTRUCTIONS Follow-up: Blood pressure screening was not performed during this visit because the patient has an active diagnosis of hypertension. (Electronically signed by Harlan Grove Dr. 01/21/2017 20:43)
--- NOTE | 2017-01-21 20:44 | ED MED RECONCILIATION SUMMARY ---
Patient: GAY FLORES Medication Reconciliation Report Located [facility] VisitID: [id number] [address] [place] [address] 86y, M Registration Date/Time: 01/20/2017 Weight: 75.7 kg Height/Length: 66 in. BMI: 26.9 ALLERGIES: IV Contrast, Tetanus Immune Globulin, Tetanus Toxoids The patient's Home Medications are listed below: THE FOLLOWING MEDICATIONS NEED TO BE RECONCILED: Coumadin Oral 5 mg, 1 1/2 tab Doxazosin Mesylate Oral (8 mg) 1 tablet Felodipine Oral 5 mg, daily Indapamide Oral (1.25 mg) 1 tablet Metoprolol Tartrate Oral 100 mg, 2 tablets Potassimin Oral 10mg The source(s) of the original Home Medication information: Not obtained. The following Medications were given to the patient in the Emergency Department: IV NS IV Fluids bolus 0, then 1000 mL/hr, administered: 01/20/2017 6:31:00 PM Glucagon [IVP] IVP 1 mg, administered: 01/20/2017 7:31:00 PM Lopressor [IVP] IVP 5 mg, administered: 01/20/2017 7:44:00 PM IV LACTATED RINGERS IV Fluids bolus 0, then 150 mL/hr, administered: 01/20/2017 7:53:00 PM The following Medications were prescribed to the patient: None.
--- NOTE | 2017-01-22 00:20 | NUR ---
TOOK OVER THIS PATIENT'S CARE. CURRENTLY COMFRTABLE IN BED AND ASLEEP. HE IS FOR CLEAR LIQIUDS ONLY AND CONTINUES ON IV FLUIDS. HE IS ON TELEMETRY AND IS STILL WITH OCCASIONAL A. FIB.
[2017-01-22 02:52] VITALS: BP 139/76
[2017-01-22 06:52] VITALS: BP 146/82
--- NOTE | 2017-01-22 10:00 | Progress Note ---
Subjective General Pt. is feeling ok and taking in clear liquids and his own secretions. Physical Exam Vital Signs / I&Os Vital Signs Date Time Temp Pulse Resp B/P Pulse O2 O2 Flow FiO2 Ox Delivery Rate 01/22 0849 Room Air 0.0 01/22 0652 98.8 90 18 146/82 94 01/22 0252 99.0 101 17 139/76 95 Room Air 0.0 01/22 0245 Room Air 01/21 2211 99.3 101 18 150/75 96 Room Air 0.0 01/21 1845 100.2 110 18 160/89 95 Room Air 0.0 01/21 1700 Room Air 01/21 1550 98.8 83 18 96 01/21 1548 156/85 01/21 1500 89 18 154/78 96 01/21 1430 77 18 155/88 96 01/21 1400 81 18 169/83 97 01/21 1347 93 18 161/92 98 01/21 1331 98.8 80 18 159/84 94 Nasal Cannula 01/21 1315 87 16 151/75 96 01/21 1310 81 14 147/88 97 01/21 1305 93 12 150/78 98 Nasal 2.0 Cannula 01/21 1300 98.8 99 14 122/86 98 Nasal 1.0 Cannula 01/21 1255 101 16 150/90 98 Nasal 2.0 Cannula 01/21 1250 99 18 134/83 96 Nasal 2.0 Cannula 01/21 1245 87 20 127/57 95 Nasal 2.0 Cannula 01/21 1241 98.4 94 24 133/68 95 Nasal 2.0 Cannula 01/21 1014 98.2 89 18 155/96 95 I&O 01/21 0800 01/21 1600 01/22 0000 Intake Total 0 913 750 Output Total 1000 750 350 Balance -1000 163 400 General Appearance Alert, Oriented X3, Cooperative, No acute distress Assessment and Plan Problem List 1. Esophageal stenosis Plan take full liquids and crushed pills, I called path lab and requested a stat on the biopsies. If this is benign he will need a repeat dilation next week to 15- 18mm. If malignant then stenting and oncology work up is appropriate. In the meantime PPI' and liquid diet is needed.
--- NOTE | 2017-01-22 10:03 | NUR ---
Nutrition Follow Up Note: Per nursing, pt and family requested nutrition education on Full Liquid options for home. Pt currently on clear liquid diet, advancing to full liquids. Provided handout on full liquid choices to patient and assessed understanding. RD will continue to monitor for additional nutrition needs/per protocol.
[2017-01-22 11:02] VITALS: BP 136/77
--- NOTE | 2017-01-22 12:15 | Provider's Discharge Care Plan ---
Problem, Goal, Plan Problem List 1. Esophageal stenosis Goals: Improve disease control, Improve function, Improved health/wellness, Increase independence, Improve nutrition status, follow full liquid diet. Crush pills if necessary. Keep FU appt. with Dr. Luciano and Dr. Cedillo Instructions: Follow up as directed, Increase activity level, Take meds as directed 2. Atrial fibrillation Goals: Improve disease control, Improve function, Improved health/wellness, Increase independence Instructions: Follow up as directed, Increase activity level, Take meds as directed, continue usual warfarin dose. 3. Essential (primary) hypertension Goals: Improve disease control, Improve function, Improved health/wellness, Increase independence Instructions: Follow up as directed, Increase activity level, Take meds as directed, Stop smoking, continue usual BP meds.
--- NOTE | 2017-01-22 13:17 | DIAGNOSTIC IMAGING REPORT ---
PROCEDURE: CT THORAX ABD PELVIS W/O CONT INDICATION: adeno ca of lower esophagus with obstruction TECHNIQUE: Axial scans with coronal and sagittal re-formations. IV contrast not utilized due to allergy and low GFR. COMPARISON: CT abdomen/pelvis 10/29/2016 and Chest x-ray 05/01/2014. FINDINGS: Chest: There are six right lung and three left upper lobe nodules (3 - 7 mm). There are mild to moderate left lower lobe alveolar opacities. There are small bilateral pleural effusions. Precarinal and subcarinal lymph nodes measure 8 mm short axis. 6 mm left para esophageal lymph node. Mild fluid distention of the esophagus with thickening of the distal esophagus consistent with a history of esophageal cancer. 1.3 cm left thyroid nodule. Mild to moderate atherosclerosis of the aorta. Extensive coronary atherosclerosis. Normal heart size. Small pericardial effusion/thickening. Moderate degenerative changes of the spine. Abdomen: Small calcified gallstone. Liver, spleen, pancreas and left adrenal gland are normal. Stable 2.0 cm adrenal mass measures are 1 HU with peripheral calcification suggestive of an adenoma. Stable to slight progression of right renal lower pole solid mass measures 7 x 5.8 x 6.7 cm with increasing perinephric stranding. Moderate bilateral renal atrophy with bilateral cysts. Chronic prominence of the distal right ureter. Moderate atherosclerosis of the aorta. Small hiatal hernia. 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 Ankylosis of the L1-L3 vertebral bodies. Severe degenerative changes of the spine. Pelvis: Appendix not clearly visualized. Enlarged prostate measures 4.8 cm. Normal bladder. Small bilateral fat filled inguinal hernias. No inflammatory changes or free fluid. IMPRESSION: 1. Mild fluid distention of the esophagus with thickening distally consistent with a history of esophageal cancer 2. Small bilateral pulmonary nodules, indeterminate, metastases versus inflammatory 3. Small left lower lobe infiltrate suggestive of pneumonia, possible aspiration finding lungs are clear. Heart size, mediastinum and prior vessels are normal. Mild degenerative changes of the spine. Conclusion negative chest age 99 07/00 kidney three views findings negative left foot station 99 cm 4. Stable to slight progression of right renal lower pole solid mass with increasing perinephric stranding 5. Gallstone 6. Right adrenal adenoma 7. Small bilateral fat containing inguinal hernias 8. Results discussed with Dr. Kaye
[2017-01-22 14:45] VITALS: BP 136/73
--- NOTE | 2017-01-22 17:15 | Progress Note ---
Subjective General Pt. is taking full liquids. I have talked to him and his about the pathology which shows adenocarcinoma. The CT shows a 5 mm node near the esophagus and the large kidney tumor. Small nodules are seen in the lung. The pt. and his have refused intervention for the renal mass which is most likely a slowly progressing carcinoma. They do not want chemo or radiation accept the liklihood of the cancer(s?) leading to . Physical Exam Vital Signs / I&Os Vital Signs Date Time Temp Pulse Resp B/P Pulse O2 O2 Flow FiO2 Ox Delivery Rate 01/22 1445 98.1 75 18 136/73 96 Room Air 01/22 1102 98.8 75 18 136/77 96 01/22 0849 Room Air 0.0 01/22 0652 98.8 90 18 146/82 94 01/22 0252 99.0 101 17 139/76 95 Room Air 0.0 01/22 0245 Room Air 01/21 2211 99.3 101 18 150/75 96 Room Air 0.0 01/21 1845 100.2 110 18 160/89 95 Room Air 0.0 I&O 01/21 0800 01/21 1600 01/22 0000 Intake Total 0 913 750 Output Total 1000 750 350 Balance -1000 163 400 Assessment and Plan Problem List 1. Adenocarcinoma of esophagus Plan I discussed treatment options. Earlier today I talked to Dr. Hall at who agreed to stent the tumor, but insurance indicated a different institution. Mrs. Morel wanted to avoid travelling elsewhere. [facility] was uninterested in stenting and recommended radiation which the Das have refused. I have agreed to place the self expanding stent tommorow here and have scheduled it for tommorow. I told the pt. about the risks and that it is for palliative purposes only. They would like to proceed as described. He has had one dose of coumadin today and his INR was 1.6 yesterday. I don't think this should be a problem for this endoluminal procedure unless there is a marked elevation.
[2017-01-22 18:15] VITALS: BP 122/71
--- NOTE | 2017-01-22 21:22 | NUR ---
PT A&O X3, COOPERATIVE DURING CARE. UP AMBULATING INDEPENDENTLY WITH IV POLE FOR SUPPORT. ON TELE. DENIES PAIN OR DISCOMFORT. VSS.
[2017-01-22 22:25] VITALS: BP 147/76
[2017-01-23] VITALS (10 sets, daily range): BP systolic 148–196; BP diastolic 71–123
--- NOTE | 2017-01-23 04:11 | NUR ---
PT C/O MILD ABD PAIN. STATED THIS IS SOMETHING NEW. NO INCREASE OF PAIN WITH ABD PALPATON. PAIN RESOLVED QUICKLY.
--- NOTE | 2017-01-23 08:00 | NUR ---
RECEIVED PT SITTING AT THE EDGE OF THE BED, AWAKE, ALERT, ORIENTED, COHERENT, COOPERATIVE. HARD OF HEARING. V/S TAKEN AND RECORDED. ASSESSMENT DONE. PT DENIES ANY PAIN AT THIS TIME. DUE MEDS GIVEN WITH SIPS OF WATER ONLY, AT 0805, PT COUGH A FEW TIMES, AND ASKED IF HE IS CHOKING " I AM OK" . THEN PT STOPPED COUCHING, MAINTIANED ON NPO. PLAN OF CARE INFORMED PT. SHOWER THIS MORNING BEFORE THE PROCEDURE. " OH I'D LIKE THAT" PT STATES. NEEDS ATTENDED.
--- NOTE | 2017-01-23 10:26 | NUR ---
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 Upon assessment, there is mid back and brownish raised area which appears it was rubbed and is a bit irritated. Pt has mutliple brown spots and per RN's report he stated "I spend alot of time in the sun". Bacitracin and adhesive bandage applied, recommended complete skin check upon discharge.
--- NOTE | 2017-01-23 13:30 | NUR ---
PT IS AMBULATING IN THE [facility]. MR DEVORA AND MS ISAAC NOTIFIED THAT DR FAUST NEEDS TO FILL UP THE CONSENT.
--- NOTE | 2017-01-23 15:28 | NUR ---
PT TO PREOP AT 1527 VIA STRETCHER FOR STENT PLACEMENT. TELE ON STANDBY AND REMOVED. IVF'S SENT WITH PT. [place]ING RING REMOVED AND WITH . GLASSES WITH PT. PT VOIDED. WENT TO PREOP WITH PT.
--- NOTE | 2017-01-23 16:38 | NUR ---
RECEIVED TO UNIT. MONITORS PLACED. NATURAL AIRWAY, ORAL SUCTINING, PRODUCTIVE COUGH. HEAD OF BED ELEVATED NEARLY 90 DEGRESS. AWAKENING, REQUIRES ASSSITANCE FOR ORAL SUCTIONING.
--- NOTE | 2017-01-23 16:52 | NUR ---
MANAGEING OWN AIRWAY AT THIS TIME, PRODUCING THICK, CLEAR SECRETIONS REPORTS THROAT IS A LITTLE SORE. NAUSEA WITH GAG, COUGH REFLEX. GIVEN ONDANSETRON IV, [place] AT BEDSIDE.
--- NOTE | 2017-01-23 17:16 | DIAGNOSTIC IMAGING REPORT ---
PROCEDURE: XR FLUORO ENDOSCOPE DILATION INDICATION: ESOPHAGEAL STENT PLACEMENT. TECHNIQUE: Intraoperative fluoroscopy provided for esophageal stent placement. Total fluoro time 2 minutes 28 seconds, cumulative dose 71.1 mGy COMPARISON: None. FINDINGS: A single intraoperative fluoroscopic spot image demonstrates a stent expanded to the left of the spine in the expected location of the gastroesophageal junction. IMPRESSION: 1. Intraoperative fluoroscopy for esophageal stent placement.
--- NOTE | 2017-01-23 17:53 | NUR ---
RETURNED TO ROOM, CONTINUES TO PRODUCE SECRETIONS, SELF SUCTIONING.
--- NOTE | 2017-01-23 17:55 | NUR ---
PT RETURNED FROM PACU TO ROOM 204A VIA STRETCHER AND LEARNING AND DEVELOPMENT CONSULTANT. REPORT GIVEN BY BRUNA MONTES DE OCA. PT AMBULATED TO BATHROOM AND THEN TO BED FROM STRETCHER. PT GAGGING AND SPITTING UP PHLEGM STATING HE FEELS LIKE HE IS GAGGING AND HIS THROAT HURTS. PT ABLE TO CLEAR SECRETIONS. SUCTIONED USED. QUEAZIES USED. O2 AT 2 L VIA NC FOR COMFORT. ICE APPLIED TO BACK OF NECK FOR COMFORT. DR. FAUST NOTIFIED AND NEW ORDERS FOR PAIN MEDS AND LIDOCAINE FOR SWALLOW. AT BEDSIDE AND TEARY EYED, PARTICIPATING IN CARE. [facility].
--- NOTE | 2017-01-23 17:58 | NUR ---
CORRECTION: PT ARRIVED FROM PACU TO ROOM 204A AT 1725
--- NOTE | 2017-01-23 20:31 | OPERATIVE REPORT ---
DATE OF SURGERY: 01/23/2017 SURGEON: Bob Kaye MD PREOPERATIVE DIAGNOSIS: 1. Obstructing esophageal carcinoma POSTOPERATIVE DIAGNOSIS: 1. Obstructing esophageal carcinoma PROCEDURE PERFORMED: 1. Esophageal stent placement ANESTHESIA: General. INDICATIONS: The patient is an 86-year-old man requiring palliative stenting of an obstructing esophageal adenocarcinoma. SURGICAL TECHNIQUE: The patient was taken to the operating room where a general anesthetic was administered and patient placed in supine position. The endoscope was inserted down the esophagus and the top and bottom edges of the tumor were identified. Radiodense markers were placed on the anterior chest wall to marifer these locations. A floppy- tipped Savary guidewire was passed into the stomach and the endoscope withdrawn from the esophagus, leaving the wire in place. A WallFlex esophageal partially covered stent system was inserted. This was positioned so that there was about a 2 cm landing zone below the tumor. The stent was deployed under direct fluoroscopic guidance and remained in position well as the hardware was withdrawn. The endoscope was repassed demonstrating nicely positioned stent and the patient left the operating room in good condition. Addendum: The WallFlex stent was a 23 x 125 mm partially covered stent system.
--- NOTE | 2017-01-23 22:27 | NUR ---
A&OX4. VSS, BP ELEVATED. PT CONTINUES TO FEEL LIKE HE IS "GAGGING" AND IS HEAVING AND SPITTING UP LOTS OF PHLEGM. C/O THROAT IRRITATION. C/O UPPER ABDOMINAL PAIN. REASSURED PT THAT THROAT IRRITATION IS NORMAL AFTER THIS PROCEDURE AND REMINDED HIM THAT THERE IS A STENT IN HIS ESOPHAGUS. HYACET AND VISCOUS LIDOCAINE EFFECTIVE. PT ABLE TO GET SIPS OF BROTH AND TWO BITES OF JELLO DOWN ONLY. PT REQUESTS HE STAY OVERNIGHT FOR SYMPTOM MANAGEMENT. TOLD PT THIS IS ACCEPTABLE PER DR. FAUST. WENT HOME FOR THE NIGHT. WCTM.
[2017-01-24 02:22] VITALS: BP 167/98
--- NOTE | 2017-01-24 06:08 | NUR ---
PT ABLE TO SLEEP FOR SEVERAL HOURS AT A TIME, BUT WHEN AWAKE IS SPITTING UP PHLEGM AND "GAGGING". PT REFUSED VISCOUS LIDOCAINE AND HYCET. SAT UP IN CHAIR FOR THE ENTIRE SHIFT. HR HAD SEVERAL RUNS OF TACHY DURING THE NIGHT. UP INDEPENDENTLY TO BR.
[2017-01-24 06:57] VITALS: BP 166/101
[2017-01-24 11:05] VITALS: BP 159/91
--- NOTE | 2017-01-24 11:22 | Progress Note ---
Subjective General Pt was nauseated last night but is better this am. He is able to swallow. He denies chest or back pain. Physical Exam Vital Signs / I&Os Vital Signs Date Time Temp Pulse Resp B/P Pulse O2 O2 Flow FiO2 Ox Delivery Rate 01/24 1105 99.1 78 16 159/91 94 Room Air 0.0 01/24 0657 98.8 93 22 166/101 97 Room Air 0.0 01/24 0222 98.2 84 18 167/98 96 Room Air 01/24 0015 Nasal 2.0 Cannula 01/23 2258 98.2 71 18 170/101 96 Nasal 2.0 Cannula 01/23 2030 98.8 93 18 174/81 100 Nasal 2.0 Cannula 01/23 2014 2.0 01/23 1930 98.4 82 18 166/104 98 Nasal 3.0 Cannula 01/23 1900 83 18 158/98 97 Nasal 3.0 Cannula 01/23 1815 98.8 81 20 169/104 98 Nasal 3.0 Cannula 01/23 1749 98.4 102 20 196/123 99 Room Air 01/23 1710 97.5 90 20 173/91 100 Nasal 3.0 Cannula 01/23 1700 96 22 169/98 100 Nasal 3.0 Cannula 01/23 1655 92 18 176/98 99 Nasal 3.0 Cannula 01/23 1650 106 18 174/108 99 Nasal 4.0 Cannula 01/23 1645 96 18 167/112 Nasal 4.0 Cannula 01/23 1640 95 20 163/90 98 Nasal 4.0 Cannula 01/23 1635 104 22 176/100 100 Blow By 12.0 01/23 1633 97.2 98 22 179/101 100 Blow By 12.0 01/23 1430 98.2 80 18 153/86 96 Room Air I&O 01/23 0800 01/23 1600 01/24 0000 Intake Total 1235 650 225 Output Total 250 100 Balance 985 550 225 General Appearance Alert, Oriented X3, Mild distress Assessment and Plan Problem List 1. Adenocarcinoma of esophagus Plan stent seems to be working and nausea may be post anesthesia and is getting better. Pt. reports that Dr. Gastelum plans to send home tommorow if things are going well.
[2017-01-24 14:11] VITALS: BP 167/103
--- NOTE | 2017-01-24 17:16 | NUR ---
PT IS SITTING IN CHAIR AND TAKING THICKENED WATER AND GREEN JELLO BITES WELL. TUCKS CHIN IN TO AID SWALLOWING. NO NAUSEA PRESENT. WCTM.
[2017-01-24 18:05] VITALS: BP 175/78
--- NOTE | 2017-01-24 18:34 | NUR ---
PT IS TACHY WHEN AMBULATING TO BR AND ASYMPTOMATIC. RESTING NOW AFTER VISITED. WCTM.
--- NOTE | 2017-01-24 19:58 | NUR ---
PT C/O MODERATE NAUSEA, NO EMESIS; PRN ZOFRAN ADMINISTERED PER REQUEST.
--- NOTE | 2017-01-24 21:11 | NUR ---
PT RESTING IN BED, A&O X3. DENIES PAIN. C/O NAUSEA EARLY IN SHIFT, PRN ZOFRAN ADMINISTERED WITH EFFECTIVE RESULTS. SPITTING UP CLEAR PHLEGM REGULARLY SINCE ESOPHEGEAL STENT PROCEDURE. SWALLOWING SMALL AMOUNTS OF NECTAR THICK LIQUIDS WELL; SWALLOWING PILLS CRUSHED IN APPLESAUCE WITHOUT PROBLEM. TACHYCARDIA NOTED WITH ACTIVITY/EXERTION.
[2017-01-24 22:20] VITALS: BP 169/70
--- NOTE | 2017-01-25 01:35 | NUR ---
PT TRANSFERRED TO BEDSIDE RECLINER PER REQUEST. STATES IT WILL BE EASIER TO COUGH UP THE CLEAR SPUTUM THAT HE HAS HAD SINCEESOPHAGEAL PROCEDURE. DENIES NAUSEA.
[2017-01-25 02:31] VITALS: BP 145/68
[2017-01-25 06:57] VITALS: BP 156/99
--- NOTE | 2017-01-25 07:53 | NUR ---
PT STATES "NO PAIN" AT THIS TIME AND STATES THAT HE'S STILL "A LITTLE BIT" NAUSEATED BUT IS TOLERABLE SO DOESN'T WANT ANYTHING AT THIS TIME. WILL CONTINUE TO CHECK ON PT. PT STATES "NO NEEDS AT THIS TIME"
[2017-01-25] MEDS ORDERED: ONDANSETRON ODT4 MG PO (09:56)
--- NOTE | 2017-01-25 09:59 | Provider's Discharge Care Plan ---
Problem, Goal, Plan Problem List 1. Adenocarcinoma of esophagus Goals: Improve disease control, Improve function, Improved health/wellness Instructions: Follow up as directed, Increase activity level, Take meds as directed, Avoid processed foods, continue full lquid, soft diet/ Use odansetron 4 mg tab one dissolved in mouth q 4h as needed for nausea and or vomiting.
[2017-01-25 10:33] VITALS: BP 149/87
--- NOTE | 2017-01-25 10:51 | NUR ---
DISCHARGE PAPERWORK GIVEN TO PT AND QUESTIONS ANSWERED. PRESCRIPTION CALLED INTO [facility]. PT STATES WILL LEAVE AFTER LUNCH. PT WILL GO OUT WITH HIS TO PERSONAL VEHICLE.
--- NOTE | 2017-01-25 12:59 | NUR ---
PT WAS WHEELCHAIRED OUT BY WAN/GUEST ROOM INSPECTOR TO PERSONAL CAR.
--- NOTE | 2017-02-01 12:30 | DISCHARGE SUMMARY ---
ADMIT DATE: 01/21/2017 DISCHARGE DATE: 01/25/2017 ADMISSION DIAGNOSIS: 1. Esophageal stricture. DISCHARGE DIAGNOSES: 1. Esophageal adenocarcinoma with stricture. 2. Underlying atrial fibrillation. 3. Hypertension. 4. History of prostate hypertrophy with remote TUR with some slight residual bladder outflow obstruction. 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 The patient has elected to forego biopsy and treatment of this. 5. Other problems include rather diffuse degenerative arthritis, particularly affecting the left knee. PROCEDURE: 1. The patient has had EGD done with esophageal dilation on 01/21/[address] Kaye. He returned to surgery 01/23/2017 for placement of an esophageal stent, also by Dr. Kaye. BRIEF HISTORY: Please see the dictated history and physical exam for details concerning admission. HOSPITAL COURSE: The patient is an 86-year-old white male who developed increased difficulties with swallowing over the last month or so and reached the point where he could not really swallow anything. He was seen in the emergency department and noted to have quite a bit of food and fluid in the esophagus causing it to be dilated, but not passing into the stomach. He was admitted and stabilized for surgery. He did have underlying atrial fibrillation and hypertension and has been on Coumadin and antihypertensive medications for a number of years. His protime INR was 1.6, which was felt to be safe for surgery. Dr. Kaye was consulted and proceeded with an EGD on 01/21/2017. This showed this esophageal stricture and some irritation. Biopsies were done and the esophagus was dilated with a balloon dilator up to about 10 mm. After this, the patient continued to have difficulty with swallowing and continued to have nausea. The pathology on the biopsy showed adenocarcinoma. Due to the patient's continued difficulties with swallowing, he remained in the hospital. He was advised of the tumor and was offered referral to [facility] for more definitive surgery and more aggressive treatment. He declined this. He and Dr. Kaye discussed an esophageal stent to see if this would work to help with ongoing swallowing, though it would not really eliminate the tumor. The patient was in favor this as it could be done endoscopically at [facility]. Of note is that the patient also has a right renal mass that has been slow growing over the last 6 or 7 years. It has seemed to grow significantly over the last year or so. He has declined treatment for this and declined biopsy of this. It is suspected this is a renal cell carcinoma and is something else he is needing to deal with. The patient was taken back to surgery on 01/23/2017 and had the esophageal stent placed. Dr. Kaye was planning discharge Thursday. The patient had marked difficulty swallowing and nausea and persistent emesis throughout the night on Thursday night and into Thursday morning. He was started on some antiemetics, particularly with ondansetron, and seemed to do okay with this. By the following day, he was doing better and was able to swallow clear liquids and full liquids and felt he was doing well enough to be discharged home. DISCHARGE INSTRUCTIONS/MEDICATIONS: Disposition: The patient is discharged home in the care of his . He will continue with his usual medications including warfarin 7.5 mg on Thursday and 5 mg all other days, felodipine 5 mg every evening for blood pressure, metoprolol tartrate 100 mg strength 2 tablets in the morning and 1-1/2 tablets in the evening, Indapamide 1.25 mg 1 daily, potassium 10 mEq daily, doxazosin 8 mg at bedtime to control blood pressure and to improve urine flow. He also has been on Uloric 40 mg daily for controlling uric acid, though whether he is taking this currently is not clear. He was advised to continue this. He will also be prescribed ondansetron 4 mg tablets dissolving type, 1 dissolved in the mouth every 4 hours as needed for nausea. He will continue with a full liquid and very soft diet. He will follow up with Dr. Kaye in 1-2 weeks and will follow up with me on 01/30/2017. If he has problems in the interim, he will call. If he has bleeding problems, he will call. He is planning on conservative nonaggressive care for this particular tumor and understands that the long-term prognosis is not good. Part of his decision-making his affected by the fact that he also has the right renal tumor and this has reached the point where it would need aggressive treatment if he is not going to have this start to spread and be significantly problematic as well. He is not in favor of major surgeries at his age of 86.
== END 2017-01-25 13:00 | disposition home or self-care (01) | DRG 375 ==
LOC: ED SRH 17:49 → ACUTE2 SRH 21:36 → TRANS SRH 21:36 → ACUTE2 SRH 21:36 → TRANS SRH 21:36 → ACUTE2 SRH 22:57 → ACUTE3 SRH 01-22 12:09 → ACUTE2 SRH 01-25 13:00
PROVIDERS: Surgery; ADMIT Family Medicine
PROC: 0D738ZZ Dilation of Lower Esophagus, Via Natural or Artificial Opening Endoscopic (ICD-10-PCS; 2017-01-21)
PROC: 0DB38ZX Excision of Lower Esophagus, Via Natural or Artificial Opening Endoscopic, Diagnostic (ICD-10-PCS; 2017-01-21)
PROC: 0D738DZ Dilation of Lower Esophagus with Intraluminal Device, Via Natural or Artificial Opening Endoscopic (ICD-10-PCS; principal; 2017-01-23 14:30)
DX: C15.5 Malignant neoplasm of lower third of esophagus (principal); K22.2 Esophageal obstruction; C64.1 Malignant neoplasm of right kidney, except renal pelvis; I48.2 Chronic atrial fibrillation; Z79.01 Long term (current) use of anticoagulants; I12.9 Hypertensive chronic kidney disease with stage 1 through stage 4 chronic kidney disease, or unspecified chronic kidney disease; N18.9 Chronic kidney disease, unspecified; J44.9 Chronic obstructive pulmonary disease, unspecified
CPT/HCPCS: 29230; 50004; 60001; 70002; 80102; 82728; 82943; 83526; 85241; 85244; 85754; 90047; 90074; 90100; 94001; 94060; 95059